=== PATIENT | male | born 1965 | race Two or more races ===

== ENCOUNTER 2017-09-11 12:28 | Emergency (ER) | payer OTHER ==
[~2017-09-11] VITALS: Ht 177.8 cm; Wt 77.1 kg
[~2017-09-11 12:28] MED LIST: ADVIL200 M1 PO
[2017-09-11 12:32] VITALS: BP 146/92
[2017-09-11] MEDS ORDERED: Bacitracin Oint UD TOPIC ONE (13:00)
[2017-09-11] MEDS ORDERED: Tetanus/Diptheria/Pertussis Vaccine 0.5ml Syr IM ONE (13:00)
[2017-09-11] MEDS ORDERED: Lidocaine 1% Plain 30 ml INJ ONE (13:00)
[2017-09-11] MEDS ORDERED: NORCO 5-325 TA1 EAC1 ORAL (14:39)
[2017-09-11] MEDS ORDERED: CEPHALEXIN500 MG ORAL (14:39)
[2017-09-11] MEDS ORDERED: IBUPROFEN600 MG ORAL (14:39)
[2017-09-11 14:50] VITALS: BP 131/90
--- NOTE | 2017-09-11 20:14 | Emergency Room Report ---
History of Present Illness General Chief Complaint: Laceration Source: Patient, Medical Record Present Illness HPI The patient is a 51-year-old male presenting for laceration. He states that he was cleaning a external grinder when his right fifth digit struck the blade. This occurred earlier this morning. Pain is a 3/10 dull ache and does not radiate. Worse with touch. He denies any numbness or tingling. Last tetanus shot is unknown. Denies any other symptoms Allergies: Coded Allergies: No Known Allergies (Unverified , 08/11/12) Patient History Past Medical History: see triage record Reviewed Nursing Documentation: PMH: Agreed, PSxH: Agreed Nursing Documentation-PMH Hx Cardiac Problems: No - Lt Cataract surgery in 2013 Hx Hypertension: Yes - STRESS RELATED; NOT ON BP MEDS Hx Cancer: No Hx Gastrointestinal Problems: No Hx Neurological Problems: No Review of Systems All Other Systems: negative except mentioned in HPI Physical Exam Vital Signs Date Time Temp Pulse Resp B/P (MAP) Pulse Ox O2 Delivery O2 Flow Rate FiO2 09/11/17 12:32 97.7 109 18 146/92 95 Room Air Sp02 EP Interpretation: reviewed, normal General Appearance: no apparent distress, alert, GCS 15, non-toxic Head: normocephalic, atraumatic Eyes: bilateral eye normal inspection, bilateral eye PERRL ENT: hearing grossly normal, normal pharynx, no angioedema, normal voice Neck: full range of motion, supple/symm/no masses Musculoskeletal: back normal, gait/station normal, normal range of motion, tender - distal R 5th digit Neurologic: alert, oriented x3, responsive, motor strength/tone normal, sensory intact, speech normal Psychiatric: judgement/insight normal, memory normal, mood/affect normal, no suicidal/homicidal ideation Skin: laceration - R 5th digit: distal laceration. Semicircumferential. Partial nail avulsion Lymphatic: no adenopathy Procedures Splinting Splinting : Consent: Verbal Location: R 5th digit Pre-Made Type: metal Pre-Proc Neuro Vasc Exam: normal Post-Proc Neuro Vasc Exam: normal Patient Tolerated: Well Complications: None Laceration/Wound Repair Laceration/Wound Repair : Consent: Verbal Wound Location: upper extremity Wound's Depth, Shape: superficial, irregular, nail-avulsed Wound Length (cm): 4 Wound Explored: clean Irrigated w/ Saline (ccs): 100 Betadine Prep?: Yes Anesthesia: 1% Lidocaine Volume Anesthetic (ccs): 4 Wound Debrided: minimal Wound Repaired With: sutures Suture Size/Type: 4:0, nylon Number of Sutures: 4 Layer Closure?: No Sterile Dressing Applied?: Yes Splint Applied?: Yes Type of Splint Applied: metal finger Sling Applied?: No Patient Tolerated: Well Complications: None Medical Decision Making PA Attestation Dr. Esteban is my supervising physician. Patient management was discussed with my supervising physician Diagnostic Impression: Primary Impression: Finger laceration Qualified Codes: S61.316A - Laceration without foreign body of right little finger with damage to nail, initial encounter ER Course The patient is a 51-year-old male presenting for laceration. Ddx considered include but not limited to fracture, tendon/ligament injury, avulsion, nerve damage PE: R 5th digit: distal laceration. Semicircumferential. Partial nail avulsion. irregular with some skin avulsion. SILT. Full AROM intact The wound was irrigated with normal saline and cleaned with betadine. A 27g needle was used to administer 5mL of lidocaine w.o epi for digital block. 3 sutures were placed with 5-0 prolene. The wound was well approximated and the patient tolerated the procedure well. The wound was then cleaned and bacitracin was applied. A metal finger splint was applied The patient will continue to keep the wound clean and dry and will followup with PMD and workers compensation. Suture instructions provided. ER precautions are given Last Vital Signs Date Time Temp Pulse Resp B/P (MAP) Pulse Ox O2 Delivery O2 Flow Rate FiO2 09/11/17 14:50 97.7 89 17 131/90 98 Room Air Status: improved Disposition: HOME, SELF-CARE Condition: Improved Scripts Hydrocodone Bit/Acetaminophen 5-325* (NORCO 5-325 TABLET*) 1 Each Tablet 1 TAB ORAL Q6HR Y for For Pain, #10 TAB Prov: TERZIAN,YESI P.A. 09/11/17 Cephalexin* (KEFLEX*) 500 Mg Capsule 500 MG ORAL EVERY 12 HOURS, #14 CAP 0 Refills Prov: TERZIAN,YESI P.A. 09/11/17 Ibuprofen* (MOTRIN*) 600 Mg Tablet 600 MG ORAL Q8H Y for For Pain, #30 TAB 0 Refills Prov: TERZIAN,YESI P.A. 09/11/17 Patient Instructions: Laceration Care, Adult Additional Instructions: I discussed my findings with the patient. All questions and concerns have been answered. Treatment and medication compliance have been addressed. I advised the patient that they need to follow up with PMD in 7 days for wound check and suture removal. If you are unable to see PMD, return to the ED in 7 days. Return to ED if pain remains or worsens, you notice discharge from the wound, the wound continues to bleed, the suture/s fall out, you notice a fever or chills, or for any reason. Patient verbalized understanding of discharge instructions. YESI ZIMMERMAN Sep 11, 2017 20:14
== END 2017-09-11 14:52 | disposition home or self-care (01) ==
LOC: EMR 13:05
DX: S61.216A Laceration without foreign body of right little finger without damage to nail, initial encounter (principal); W27.4XXA Contact with kitchen utensil, initial encounter; Y92.89 Other specified places as the place of occurrence of the external cause; Z23 Encounter for immunization
CPT/HCPCS: 12002; 29130; 90471; 90715; 99284; J2001; Z7502